=== PATIENT | female | born 1950 | race African-American/Black ===

== ENCOUNTER 2019-10-16 08:47 | Day surgery (SDC) | payer MEDICARE ==
[2019-10-15 10:09] VITALS: BMI 20.6
[~2019-10-16 08:47] MED LIST: Prevnar 13-Val Conj/PF 0.5 ML SYRINGE IM ONE
[2019-10-16 09:38] LABS: #Eosinphils 0.1 thou/uL (0.0-0.7); #Lymphocytes 1.5 thou/uL (1.20-3.40); #Monocytes 0.6 thou/uL (0.11-0.59); #Neutrophils 2.7 thou/uL (1.40-6.50); %Basophils 0.5 % (0.0-1.0); %Eosinophils 1.3 % (0.0-10.0); %Lymphocytes 30.6 % (21.0-51.0); %Monocytes 11.3 % (0.0-10.0); %Neutrophils 56.3 % (42.0-75.0); Hemoglobin 11.9 g/dL (12.0-16.0); Hypochromia SLIGHT = 6-15 cells (100X) (0-5/hpf); MDiff Complete? YES; Macrocytosis SLIGHT = 6-15 cells (100X) (0-5/hpf); Mean Corpuscular HGB CONC 32.3 g/dL (32.0-36.0); Mean Corpuscular Hemoglobin 34.8 pg (27.0-31.0); Mean Platelet Volume 8.8 fL (7.4-10.4); Platelet Count 64 thou/uL (130-400); Platelet Morphology Comment Appears Decreased; Polychromasia SLIGHT = 2-3 cells (100X) (0-2/hpf); RBC Distribution Width 13.7 % (11.5-14.5); Red Blood Cell (RBC) Count 3.44 mill/uL (4.20-5.40); Target Cells SLIGHT = 2-5 cells (100X) (0-1/hpf); White Blood Cell (WBC) Count 4.9 thou/uL (4.8-10.8)
[2019-10-16] MEDS ORDERED: Midazolam HCl 2 mg/2 ml Vial ONE (09:59)
[2019-10-16] MEDS ORDERED: Sodium Bicarbonate 2.5 MEQ/5 ML VIAL ONE (09:59)
[2019-10-16] MEDS ORDERED: Fentanyl 100 MCG/2 ML VIAL ONE (10:00)
[2019-10-16] MEDS ORDERED: HYDROcodone/Acetaminophen 5/325 mg Tablet ONE (10:58)
--- NOTE | 2019-10-16 11:21 | CT ---
CT-guided liver mass biopsy HISTORY: Liver mass. FINDINGS: After explaining the procedure and answering all questions, limited CT imaging of the abdom en was performed. Hypodense mass within the left liver lobe lateral segment was confirmed. Sterile technique, buffered local anesthesia, CT guidance, and an anterior approach were used to care fully advance a 17-gauge trocar needle into the hypodense mass. Position was confirmed with CT. A total of 3 18-gauge core biopsy specimens were obtained and submitted to Dr. Chatterjee from pathology to confirm specimen adequacy. Needle was removed. No evidence of complication. Patient tolerated the procedure well and was transferred to the holding area in good condition for further monitoring. IMPRESSION : Technically successful CT-guided liver mass biopsy. Pathology is pending.
[2019-10-16 12:47] VITALS: BP 148/71; TEMP 99
== END 2019-10-16 12:15 | disposition home or self-care (01) ==
LOC: CT 08:47
PROVIDERS: ATTEND Internal Medicine
PROC: 0FB23ZX Excision of Left Lobe Liver, Percutaneous Approach, Diagnostic (ICD-10-PCS; principal; 2019-10-16)
DX: K76.89 Other specified diseases of liver (principal); K74.69 Other cirrhosis of liver; I10 Essential (primary) hypertension; K21.9 Gastro-esophageal reflux disease without esophagitis; Z87.891 Personal history of nicotine dependence; Z79.899 Other long term (current) drug therapy
CPT/HCPCS: 36415; 47000; 77002; 85025; 88307; 88313; 88333; J2250; J3010